=== PATIENT | female | born 1955 | race Caucasian/White ===

== ENCOUNTER → 2019-08-23 | Outpatient (CLI) | payer MEDICARE, OTHER ==
[~2019-08-23] MED LIST: ASPI-587 PO; BIOT25006 PO; CALC650T4 PO; ESTR0.62 PO; LEVO125T6 PO; LYSI1000 PO; MULT-608 PO; PANT20TA2 PO; SIMV20TA PO
--- NOTE | 2019-08-23 08:42 | Diagnostic Imaging Report ---
CLINICAL HISTORY: Mid back pain. No history of injury. COMPARISON: 04/08/2009 TECHNIQUE: 3 views of the thoracic spine. FINDINGS: There is no acute fracture or dislocation of the thoracic spine. Alignment is anatomic. The vertebral body heights are well-maintained. Mild degenerative changes are present in the thoracic spine. No focal osseous lesions are seen. The included lungs are clear. IMPRESSION: 1. No acute fracture or dislocation in the thoracic spine. Dictated by: Dictated on workstation # [id number]
== END ==
LOC: RAD 08:08
PROVIDERS: ATTEND Nurse Practitioner
DX: M54.6 Pain in thoracic spine (principal)
CPT/HCPCS: 72072

== ENCOUNTER → 2019-10-05 | Outpatient (CLI) | payer MEDICARE, OTHER ==
--- NOTE | 2019-10-05 12:40 | Diagnostic Imaging Report ---
INDICATION: Routine screening. Comparison is made with prior mammogram from 04/02/2015 and 02/13/2014. 2-D and 3-D bilateral screening mammography was performed with CAD. Scattered fibroglandular densities are identified bilaterally. Benign calcifications again noted bilaterally. No mass or malignant appearing microcalcifications are seen. Axillae are unremarkable. IMPRESSION: BI-RADS Category 2 No mammographic features suspicious for malignancy are identified. ACR BI-RADS Category 2: Benign findings. Result letter will be mailed to the patient. Note: At least 10% of breast cancer is not imaged by mammography. Dictated by: Dictated on workstation # [id number]
== END ==
LOC: RAD 09:06
PROVIDERS: ATTEND Nurse Practitioner
DX: Z12.31 Encounter for screening mammogram for malignant neoplasm of breast (principal)
CPT/HCPCS: 77067

== ENCOUNTER → 2020-10-14 | Outpatient (CLI) | payer MEDICARE, OTHER ==
--- NOTE | 2020-10-14 13:05 | Diagnostic Imaging Report ---
INDICATION: Routine screening. Comparison is made with prior mammogram 10/05/2019 and 04/02/2015. 2-D and 3-D bilateral screening mammography was performed with CAD. Scattered fibroglandular densities are identified bilaterally. There are scattered benign calcifications in both breasts. No mass or malignant appearing microcalcifications are seen. Axillae are unremarkable. IMPRESSION: BI-RADS Category 2 No mammographic features suspicious for malignancy are identified. ACR BI-RADS Category 2: Benign findings. Result letter will be mailed to the patient. Note: At least 10% of breast cancer is not imaged by mammography. Dictated by: Dictated on workstation # [id number]
== END ==
LOC: RAD 09:00
PROVIDERS: ATTEND Surgery
DX: Z12.31 Encounter for screening mammogram for malignant neoplasm of breast (principal)
CPT/HCPCS: 77063; 77067

== ENCOUNTER → 2020-10-16 | Outpatient (CLI) | payer MEDICARE, OTHER ==
--- NOTE | 2020-10-16 17:27 | Diagnostic Imaging Report ---
PROCEDURE: US Non-ob pelvis comp/trans. TECHNIQUE: Multiple realtime grayscale images were obtained of the pelvis in various projections endovaginally. Transabdominal imaging was also performed. INDICATION: Pelvic mass The previous pelvic ultrasound exam of 07/14/2012 failed to show any sign of a pelvic mass or of an acute abnormality. On this study, the uterus does not appear to be enlarged. The uterus measures 5.0 x 2.3 x 3.6 cm. There is no focal mass involving the uterus to suggest a fibroid. The endometrial lining is not thickened measuring 3 mm. There is a 1.1 x 1.2 x 1.1 cm cyst associated with the right ovary. This has a generally benign appearance. The left ovary is unremarkable. There is good blood flow to each ovary and there is no sign of torsion. A trace amount of free fluid was seen. There is no solid pelvic mass or free fluid collection evident. IMPRESSION: 1. There is a small benign-appearing cyst associated with the right ovary and a trace amount of free fluid. There is no acute pelvic abnormality noted otherwise. 2. There is no sign of a pelvic mass. Dictated by: Dictated on workstation # [id number]
== END ==
LOC: RAD 13:49
PROVIDERS: ATTEND Nurse Practitioner
DX: N83.201 Unspecified ovarian cyst, right side (principal)
CPT/HCPCS: 76830; 76856

== ENCOUNTER 2020-11-10 05:32 | Outpatient (RCR) | payer MEDICARE, OTHER ==
[~2020-11-10] VITALS: Ht 167.6 cm; Wt 63.6 kg
[~2020-11-10 05:32] MED LIST changes: +ASPI-999 PO; +BIOT5000 PO; +CALC-654 PO; +CHOL20003 PO; +LEVO50CA4 PO; +LYSI100014 PO; +MULT-81 PO; +PANT40SU PO; +VIT500LI PO; +ZINC50TA58 PO
== END 2020-11-10 11:15 | disposition home or self-care (01) ==
LOC: PREOP 05:32
PROVIDERS: ATTEND Surgery
DX: Z01.818 Encounter for other preprocedural examination (principal); Z12.11 Encounter for screening for malignant neoplasm of colon; K21.9 Gastro-esophageal reflux disease without esophagitis; Z20.822 Contact with and (suspected) exposure to COVID-19
CPT/HCPCS: 87635

== ENCOUNTER 2020-11-12 08:44 | Day surgery (SDC) | payer MEDICARE, OTHER ==
[~2020-11-12] VITALS: Ht 167.6 cm; Wt 63.6 kg
[2020-11-12] VITALS (15 sets, daily range): BP systolic 86–154; BP diastolic 50–90
[2020-11-12] MEDS ORDERED: HURRICAINE EXT TUBE (BENZOCAINE) XX PRN (09:00)
[2020-11-12] MEDS ORDERED: MIDAZOLAM 5 MG/5 ML (VERSED) VIAL IV ONE (09:00)
[2020-11-12] MEDS ORDERED: fentaNYL INJECTION 100 MCG/2 ML AMP IVP ONE (09:00)
[2020-11-12] MEDS ORDERED: LIDOCAINE JELLY 2% 6 ML SYRINGE MM PRN (09:00)
[2020-11-12] MEDS ORDERED: NS IV 500 ML 500 ML IV PRN (09:00)
[2020-11-12] MEDS ORDERED: NS IV 500 ML 500 ML ONE (09:06)
[2020-11-12] MEDS ORDERED: fentaNYL INJECTION 100 MCG/2 ML AMP ONE ×2 (10:10)
[2020-11-12] MEDS ORDERED: LIDOCAINE JELLY 2% 6 ML SYRINGE ONE (10:10)
[2020-11-12] MEDS ORDERED: HURRICAINE EXT TUBE (BENZOCAINE) ONE (10:10)
[2020-11-12] MEDS ORDERED: MIDAZOLAM 5 MG/5 ML (VERSED) VIAL ONE ×3 (10:10)
--- NOTE | 2020-11-12 10:14 | Progress Note-Pre Operative ---
Pre-Operative Progress Note H&P Reviewed The H&P was reviewed, patient examined and no changes noted. Date Seen by Provider: Nov 12, 2020 Time Seen by Provider: 10:00 Date H&P Reviewed: Nov 12, 2020 Time H&P Reviewed: 10:00 Pre-Operative Diagnosis: GERD, family hx colon ca CLAYTON HURT MD Nov 12, 2020 10:14
--- NOTE | 2020-11-12 10:14 | Conscious Sedation/ASA ---
Conscious Sedation Pre-Proced Time 10:00 ASA Score 2 For ASA 3 and 4: Consider anesthesia and medical clearance. Also, for patients with a history of failed moderate sedation consider anesthesia. Airway Lungs Heart ASA score ASA 1: a normal healthy patient ASA 2: a patient with a mild systemic disease (mid diabetes, controlled hypertension, obesity ASA 3: a patient with a severe systemic disease that limits activity (angina, COPD, prior Myocardial infarction) ASA 4: a patient with an incapacitating disease that is a constant threat to life (CHF, renal failure) ASA 5: a moribund patient not expected to survive 24 hrs. (ruptured aneurysm) ASA 6: a declared brain- patient whose organs are being harvested. For emergent operations, add the letter E after the classification Mallampati Classification Grade 2 Sedation Plan Analgesia, Amnesia, Plan communicated to team members, Discussed options with patient/fam, Discussed risks with patient/fam The patient is an appropriate candidate to undergo the planned procedure, sedation, and anesthesia. The patient immediately re-assessed prior to indication. CLAYTON HURT MD Nov 12, 2020 10:14
[2020-11-12] MEDS ORDERED: ACETAMINOPHEN 325 MG TABLET PO PRN (10:15)
[2020-11-12] MEDS ORDERED: morphine INJ 10 MG/ML 1ML (SYR OR VIAL) IVP PRN ×2 (10:15)
[2020-11-12] MEDS ORDERED: HYDROcodone/APAP 5 MG/325 MG (LORTAB) TAB PO PRN (10:15)
[2020-11-12] MEDS ORDERED: ONDANSETRON 4 MG/2 ML (SDV) Z0FRAN IVP PRN (10:15)
--- NOTE | 2020-11-12 10:15 | Discharge Inst-Surgical ---
D/C Lap Instructions-KIDO New, Converted, or Re-Newed RX: RX on Chart Follow Up Activity as tolerated High Fiber Diet 25g or more per day Avoid Alcohol, Caffeine, Spicy [place] and Acid foods. Drink 64 fluid oz or more of fluids per day. Symptoms to Report: Fever over 101 degree F, Nausea/Vomiting If any problems/questions: Contact your physician or go to Emergency Room CLAYTON HURT MD Nov 12, 2020 10:15
--- NOTE | 2020-11-12 11:56 | Progress Note-Post Operative ---
Post-Operative Progess Note Surgeon (s)/Census Taker (s) Surgeon CLAYTON HURT MD Census Taker: none Pre-Operative Diagnosis GERD, family hx colon ca Post-Operative Diagnosis reflux esophagitis(stage 2), small HH(1.5cm), mild gastritis. chronic stage 2 ext and int hemorrhoids, moderate sigmoid diverticulosis. Procedure & Operative Findings Date of Procedure 11/12/20 Procedure Performed/Findings EGD with bx. colonoscopy. Anesthesia Type cs Estimated Blood Loss Estimated blood loss (mL): minimal Specimens/Packing Specimens Removed ge jxn, antrum CLAYTON HURT MD Nov 12, 2020 11:56
--- NOTE | 2020-11-12 15:02 | OPERATIVE REPORT ---
DATE OF SERVICE: 11/12/2020 ATTENDING PRIMARY CARE PHYSICIAN: Garo Horner MD PREOPERATIVE DIAGNOSES: Reflux esophagitis, screening colonoscopy with family history of colon cancer. POSTOPERATIVE DIAGNOSES: Reflux esophagitis stage II, small hiatal hernia 1.5 cm in size, mild gastritis. Chronic stage II external and internal hemorrhoids, moderate sigmoid diverticulosis. PROCEDURE: EGD with biopsy, colonoscopy. SURGEON: Clayton Hurt MD. ANESTHESIA: Conscious sedation. ESTIMATED BLOOD LOSS: Minimal. FINDINGS: Reflux esophagitis stage II, small hiatal hernia 1.5 cm in size, mild gastritis. Chronic stage II external and internal hemorrhoids, moderate sigmoid diverticulosis. DISPOSITION: The patient tolerated the procedure well. INDICATIONS: The patient is a 64-year-old female in need of a screening colonoscopy as well as symptomatic gastroesophageal reflux disease. She does have a family history of colon cancer with her mother having the disease. She does not report any red blood per rectum nor any dark tarry stools. She does have epigastric burning sensation on an intermittent basis; however, believes this to be stress as well as diet related. DESCRIPTION OF PROCEDURE: The patient was brought to the endoscopy suite, laid in the left lateral decubitus position with head elevated. After adequate IV pain and sedative medications and conscious sedation anesthesia, the mouthpiece was applied. The endoscope was then placed in the mouth, visualizing the pharynx and hypopharyngeal region. Vocal cords, epiglottis and vallecula identified and appeared to be normal. The endoscope was then gently intubated into the esophageal opening and esophagus insufflated. The endoscope was then advanced to the first, second and third portions of the esophagus at the level of the GE junction, a reflux esophagitis stage II identified. There were no ulcers or strictures identified in this region. A biopsy was taken with forceps with visualization of good hemostasis. The endoscope was then advanced into the stomach and endoscope retroflexed, visualizing a small hiatal hernia approximately 1.5 cm in size. There was a mild gastritis. No formal ulcerations, polyps, or any neoplasms. A biopsy was taken of the antrum to rule out H. pylori with visualization of good hemostasis. The endoscope was then advanced through the pylorus into the first and second portion of the duodenum, which appeared normal with no distal obstructions. The endoscope was then slowly withdrawn while taking a second look and suctioning residual air with no additional findings. We then proceeded with the colonoscopy portion of the procedure and a digital rectal examination was performed, which revealed chronic stage II external and internal hemorrhoids, not actively edematous nor inflamed and no bleeding. Normal sphincter tone was felt and there were no palpable masses. The endoscope was then intubated and anus and rectum gently insufflated. The endoscope was then advanced to the valves of [place] of the rectum with no polyps or any neoplasms identified. Endoscope was then advanced through the sigmoid colon where a moderate sigmoid diverticulosis identified with no mucosal inflammatory changes to indicate any active diverticulitis. The endoscope was then advanced in the mid of the descending, transverse, ascending colon to the level of the cecum. These segments were normal. There were no polyps or any neoplasms identified. The endoscope was then slowly withdrawn while taking a second look and suctioning of residual air with no additional findings. The patient tolerated the procedure well. For her reflux esophagitis and hiatal hernia, we will recommend the necessary lifestyle and diet accommodation including small and more frequent meals, avoidance of eating at night as well as head elevation while lying supine. She also needs to avoid caffeinated beverages, spicy, greasy and acidic foods. We will have her continue with Protonix daily. We will also recommend a high fiber diet with at least 25 grams of fiber daily as well as significant amounts of water to promote soft stools on a daily basis and prevent any further propagation or complications related diverticulosis. No polyps were identified and she does not need another colonoscopy for another 5 years. Job ID: [id number] DocumentID: [id number] Dictated Date: 11/12/2020 11:03:12 Client Support Professional Date: 11/12/2020 15:01:22 Dictated By: CLAYTON HURT MD
== END 2020-11-12 12:00 | disposition home or self-care (01) ==
LOC: ENDO 08:44
PROVIDERS: ATTEND Surgery
DX: Z12.11 Encounter for screening for malignant neoplasm of colon (principal); K29.50 Unspecified chronic gastritis without bleeding; K21.00 Gastro-esophageal reflux disease with esophagitis, without bleeding; K44.9 Diaphragmatic hernia without obstruction or gangrene; K64.1 Second degree hemorrhoids; K57.30 Diverticulosis of large intestine without perforation or abscess without bleeding; E03.9 Hypothyroidism, unspecified; E78.00 Pure hypercholesterolemia, unspecified; Z79.82 Long term (current) use of aspirin; Z79.899 Other long term (current) drug therapy; Z88.0 Allergy status to penicillin; Z88.1 Allergy status to other antibiotic agents; Z80.0 Family history of malignant neoplasm of digestive organs
CPT/HCPCS: 43239; G0105; 88305

== ENCOUNTER → 2022-04-02 | Outpatient (CLI) | payer MEDICARE, OTHER ==
--- NOTE | 2022-04-02 11:56 | Diagnostic Imaging Report ---
INDICATION: Routine screening. COMPARISON is made with prior mammograms from 10/14/2020 and 10/05/2019. 2-D and 3-D bilateral screening mammography was performed with CAD. Scattered fibroglandular densities are identified bilaterally. Benign calcifications are again noted in both breasts. No mass or malignant-appearing microcalcifications are seen. Axillae are unremarkable. IMPRESSION: BI-RADS Category 2 No mammographic features suspicious for malignancy are identified. ACR BI-RADS Category 2: Benign findings. Result letter will be mailed to the patient. Note: At least 10% of breast cancer is not imaged by mammography. Dictated by: Dictated on workstation # [id number]
== END ==
LOC: RAD 07:30
PROVIDERS: ATTEND Internal Medicine
DX: Z12.31 Encounter for screening mammogram for malignant neoplasm of breast (principal)
CPT/HCPCS: 77063; 77067